=== PATIENT | female | born 1995 | race Caucasian/White ===

== ENCOUNTER 2018-07-18 10:54 | Emergency (ER) | payer BC ==
[2018-07-18 11:17] VITALS: BP 126/80
[2018-07-18] MEDS ORDERED: Ibuprofen TAB* 600 MG PO ONE (11:45)
--- NOTE | 2018-07-18 11:53 | UC ---
Lower Extremity/Ankle HPI - HPI Summary HPI Summary: Dropped heavy object on R great toe approx 0300 this morning. Today lots of pulsatile pain, unable to bear weight normally, toenail attached but all black. - History of Current Complaint Chief Complaint: UCLowerExtremity Stated Complaint: RIGHT BIG TOE COMPLAINT Time Seen by Provider: 07/18/18 11:39 Hx Obtained From: Patient Hx Last Menstrual Period: Oct 2016; Nexplanon removed 07/09/18 ?: No Onset/Duration: Sudden Onset Severity Initially: Moderate Severity Currently: Severe Pain Intensity: 8 Aggravating Factor(s): Standing, Ambulation Alleviating Factor(s): Rest Able to Bear Weight: Yes - Allergies/Home Medications Allergies/Adverse Reactions: Allergies Allergy/AdvReac Type Severity Reaction Status Date / Time Penicillins Allergy Hives Verified 07/18/18 11:12 Home Medications: Home Medications Sertraline* [Zoloft*] 1 tab DAILY 07/18/18 [History Confirmed 07/18/18] busPIRone TAB* [Buspar TAB*] 1 tab BID 07/18/18 [History Confirmed 07/18/18] PMH/Surg Hx/FS Hx/Imm Hx Previously Healthy: Yes - Surgical History Surgical History: None - Family History Known Family History: Negative: Seizure Disorder, Blood Disorder - Social History Occupation: Student Lives: Alone Alcohol Use: Occasionally Substance Use Type: None Smoking Status (MU): Never Smoked Tobacco - Immunization History Most Recent Tetanus Shot: UTD Review of Systems Constitutional: Negative Skin: Bruising, Other Eyes: Negative ENT: Negative Respiratory: Negative Cardiovascular: Negative Gastrointestinal: Negative Genitourinary: Negative Motor: Negative Neurovascular: Negative Musculoskeletal: Negative Neurological: Negative Psychological: Negative Is Patient Immunocompromised?: No All Other Systems Reviewed And Are Negative: Yes Physical Exam Triage Information Reviewed: Yes Appearance: Well-Nourished, Pain Distress - mild Vital Signs: Initial Vital Signs Temp 97.9 F 07/18/18 11:13 Pulse 78 07/18/18 11:13 Resp 17 07/18/18 11:13 BP 126/80 07/18/18 11:13 Pulse Ox 99 07/18/18 11:13 Vital Signs Reviewed: Yes Eye Exam: Normal Eyes: Positive: Conjunctiva Clear ENT Exam: Normal ENT: Positive: Normal ENT inspection, Hearing grossly normal, Pharynx normal Dental Exam: Normal Neck exam: Normal Neck: Positive: Supple Respiratory Exam: Normal Cardiovascular Exam: Normal Cardiovascular: Positive: RRR Musculoskeletal Exam: Other - tender distal r great toe, subungual hematoma Musculoskeletal: Positive: Strength Intact, ROM Intact Neurological Exam: Normal Neurological: Positive: Alert Psychological Exam: Normal Skin Exam: Normal Procedures - Incision and Drainage Right Midline Distal Toe Site: R great toenail Anesthesia: Other - none Instrument(s): Other - cautery Packing: Other - none Diagnostics - Radiology No standard instances Xray Interpretation: No Acute Changes Radiology Interpretation Completed By: ED Physician Lower Extremity Course/Dx - Differential Dx/Diagnosis Provider Diagnoses: R great toenail subungual hematoma. R great toe crush injury Discharge - Sign-Out/Discharge Documenting (check all that apply): Patient Departure All imaging exams completed and their final reports reviewed: Yes - Discharge Plan Condition: Stable Disposition: HOME Patient Education Materials: Subungual Hematoma (ED) Referrals: No Primary Care Phys,NOPCP [Primary Care Provider] - Additional Instructions: No bony injury noted -- the nail will likely fall off in the next couple weeks. You can allow this to happen naturally. It will take several months to grow back in, and likely will not look normal to begin with. Call or come back if there is redness, swelling, or worsening symptoms. - Billing Disposition and Condition Condition: STABLE Disposition: Home
--- NOTE | 2018-07-18 12:53 | RAD ---
INDICATION: Crush injury to the right great toe TECHNIQUE: 3 views of the right great toe were obtained. FINDINGS: The visualized bones are normal alignment. Joint spaces appear maintained. No fracture is seen. IMPRESSION: NO EVIDENCE FOR FRACTURE. IF THE PATIENT'S SYMPTOMS PERSIST RECOMMEND FOLLOW-UP IMAGING.
== END 2018-07-18 12:08 | disposition home or self-care (01) ==
LOC: UCCORT 10:54
DX: S90.211A Contusion of right great toe with damage to nail, initial encounter (principal); S97.111A Crushing injury of right great toe, initial encounter; W20.8XXA Other cause of strike by thrown, projected or falling object, initial encounter; Y93.9 Activity, unspecified; Y92.9 Unspecified place or not applicable; Z88.0 Allergy status to penicillin
CPT/HCPCS: 11740; 99202; A9270-GY; G0463